=== PATIENT | female | born 1970 | race Caucasian/White ===

== ENCOUNTER 2016-09-27 11:02 | Emergency (ER) | payer BC ==
[2016-09-27 11:18] VITALS: BP 118/79
--- NOTE | 2016-09-27 12:18 | EDM.PDOC ---
[id number] Complaint: LEFT HIP PAIN Time Seen by Provider: 09/27/16 11:40 Source of Information: Reports: Patient, Family History Limitations: Reports: No Limitations - History of Present Illness INITIAL COMMENTS - FREE TEXT/NARRATIVE: 46-year-old female who woke up yesterday morning with significant left hip pain , no known trauma. She has bilateral hip pain which tender correlate with her menstrual cycles. No fever or chills. She was barely able to walk yesterday, today it seems a little better but she wanted it checked. The pain radiates from her left SI joint area down into her lateral left hip. No fevers or chills , no rashes, no redness, no swelling. She's taken some Aleve which has helped some. Onset: Sudden (Woke up with pain yesterday morning) Duration: Day(s): (For the past 2 days) Location: Reports: Lower Extremity, Left Severity: Moderate Worsens with: Reports: Other (Palpation of the area is tender, ambulating is sore), Movement Associated Symptoms: Reports: Other (Irregular menstrual cycle). Denies: Chest Pain, Cough, Nausea/Vomiting Left Hip Pain Score (Numeric/FACES): 6 - Related Data Allergies Allergy/AdvReac Type Severity Reaction Status Date / Time No Known Allergies Allergy Verified 09/27/16 11:24 Home Meds: Home Meds NK [No Known Home Meds] 09/27/16 [History] Past Medical History Cardiovascular History: Reports: Other (See Below) Other Cardiovascular History: alexi parkinson white syndrome Respiratory History: Reports: Asthma Musculoskeletal History: Reports: Other (See Below) Other Musculoskeletal History: myositis - Past Surgical History Cardiovascular Surgical History: Reports: Cardiac Ablation Social & Family History - Tobacco Use Smoking Status *Q: Light Tobacco Smoker Years of Tobacco use: 16 Packs/Tins Daily: 0.5 - Recreational Drug Use Recreational Drug Use: No Review of Systems - Review of Systems Review Of Systems: See Below Constitutional: Denies: Chills, Fever Respiratory: Reports: No Symptoms Cardiovascular: Reports: No Symptoms GI/Abdominal: Reports: No Symptoms Genitourinary: Reports: Other (She had a normal menstrual cycle 10 days ago and now has a second episode of bleeding which is unusual for her) Skin: Reports: No Symptoms ED EXAM, GENERAL - Physical Exam Exam: See Below Exam Limited By: No Limitations General Appearance: Alert, No Apparent Distress (Fairly comfortable when lying supine and at rest) Eye Exam: Bilateral Eye: Normal Inspection (No jaundice) Respiratory/Chest: No Respiratory Distress Cardiovascular: Regular Rate, Rhythm Extremities: Other (Patient has exquisite tenderness to palpation from the left greater trochanteric bursa through the upper left buttock. She has moderate pain to passive range of motion of the hip, worse with internal and external rotation.) Course - Vital Signs Last Recorded V/S: Last Vital Signs Temp 97.1 F 09/27/16 11:23 Pulse 83 09/27/16 11:23 Resp 16 09/27/16 11:23 BP 118/79 09/27/16 11:23 Pulse Ox 100 09/27/16 11:23 - Re-Assessments/Exams Free Text/Narrative Re-Assessment/Exam: 09/27/16 12:14 A pelvis x-ray was obtained. A small amount of arthritis was seen in the left hip but no acute findings. 09/27/16 12:46 Patient was placed on 40 mg of prednisone daily for the next 2-6 days. She can continue with Aleve and, also given 6 hydrocodone for breakthrough pain while trying to rest. She should increase activity as tolerated. Consider recheck in 3-4 days if not improving satisfactorily. Departure - Departure Time of Disposition: 12:56 Disposition: Home, Self-Care 01 Condition: good Clinical Impression: Pain of left hip Bursitis of left hip Qualifiers: Hip bursitis location: unspecified Qualified Code(s): M70.72 - Other bursitis of hip, left hip - Discharge Information Instructions: Hip Bursitis, [id number] Referrals: PCP,None [Primary Care Provider] - Forms: ED Department Discharge Care Plan Goals: Take 40 mg or 4 pills of prednisone daily with your first meal for the next 2-5 days. Continue with Aleve, and increase activity as tolerated. Recheck in 3-4 days if not improving satisfactorily.
--- NOTE | 2016-09-27 12:43 | CR ---
Pelvis 1V or 2V INDICATION: hip pain FINDINGS: No acute fracture. Joint spaces are well-maintained. Right os acetabuli. Exam otherwise ne gative.
== END 2016-09-27 12:55 | disposition home or self-care (01) ==
LOC: JP.ED 11:02
DX: M70.72 Other bursitis of hip, left hip (principal); J45.909 Unspecified asthma, uncomplicated; F17.210 Nicotine dependence, cigarettes, uncomplicated
CPT/HCPCS: 72170; 72170-26; 99284